=== PATIENT | male | born 1975 | race Caucasian/White ===

== ENCOUNTER 2016-10-26 17:50 | Emergency (ER) | payer SELFPAY ==
[~2016-10-26] VITALS: Ht 154.9 cm; Wt 60.0 kg
[2016-10-26 17:52] VITALS: BP 140/106; PULSE 96; RESP 20; TEMP 97.8; O2SAT 99
== END 2016-10-26 19:45 | disposition left against medical advice (07) ==
LOC: NED 17:50
DX: R68.89 Other general symptoms and signs (principal)
CPT/HCPCS: 99281

== ENCOUNTER 2017-08-21 17:49 | Inpatient (IN) | payer SELFPAY ==
[~2017-08-21] VITALS: Ht 154.9 cm; Wt 59.1 kg
[2017-08-21 20:45] VITALS: BP 125/90; PULSE 73; RESP 18; TEMP 97.8; O2SAT 100
[2017-08-21] MEDS ORDERED: traZODone HCL 100 MG TAB PO ONE (22:30)
[2017-08-22 05:58] VITALS: BP 102/63; PULSE 66; RESP 16; TEMP 97.8; O2SAT 66
[2017-08-22 07:44] LABS: BICARBONATE 29.8 MEQ/L (21.0-32.0); BLOOD UREA NITROGEN 11 MG/DL (7-18); CALCIUM 8.3 MG/DL (8.5-10.1); CHLORIDE 104 MEQ/L (98-107); CREATININE 0.94 MG/DL (0.60-1.30); GLOMERULAR FILTRATION RATE 89 ML/MIN (>89); GLUCOSE,RANDOM 93 MG/DL (74-106); SODIUM (NA) 139 MEQ/L (136-145)
[2017-08-22 07:45] LABS: CHOLESTEROL 163 MG/DL (120-200)
[2017-08-22 07:49] LABS: CHOLESTEROL/ HDL RATIO 3.14 RATIO; HDL CHOLESTEROL 51.9 MG/DL (40.0-60.0); LDL CHOLESTEROL 64 MG/DL (0-99); TRIGLYCERIDES 236 MG/DL (42-150)
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
[2017-08-22] MEDS ORDERED: traZODone HCL 50 MG TAB PO PRN (11:30)
[2017-08-22] MEDS ORDERED: ACETAMINOPHEN 325 MG TAB PO PRN (12:15)
[2017-08-22] MEDS ORDERED: NICOTINE 21 MG/24 HR PATCH T-DERMAL PRN (12:15)
[2017-08-22] MEDS ORDERED: MAGNESIUM HYDROXIDE SUSP 30 ML CUP PO PRN (12:15)
[2017-08-22] MEDS ORDERED: ALUMINUM/MAGNESIUM/SIMETH 30 ML CUP PO PRN (12:15)
[2017-08-22] MEDS ORDERED: REMOVE OLD PATCH T-DERMAL PRN (12:30)
[2017-08-22 16:54] LABS: HEMOGLOBIN A1C 4.6 % (4.3-6.0)
[2017-08-22 18:08] VITALS: BP 114/80; PULSE 63; RESP 17; TEMP 97.6; O2SAT 100
[2017-08-22] MEDS: LORazepam 0.5 MG TAB PO PRN (20:27)
[2017-08-23] MEDS: LORazepam 0.5 MG TAB PO PRN ×2 (05:37→11:30)
[2017-08-23 05:53] VITALS: BP 104/60; PULSE 59; RESP 20; TEMP 97.9; O2SAT 95
--- NOTE | 2017-08-23 11:40 | HHI.PYPN ---
Subjective Chief Complaint: "I think I just had a meltdown." Remarks Reviewed electronic medical record discussed case with staff. Follow-up performed in the hallway also the patient's room with nurse present. Patient is alert and oriented 4. His speech is clear, organized, and logical. Corroborating information received from the hospital in [place] states that patient was discharged to [facility] for psychiatric inpatient admission and treatment. However, patient maintains that he has had no further incidents since being discharged from [place]. Patient's counselor, Santo , is endeavoring to contact the patient's sister per his request for further corroborating information. Patient requested to have his trazodone increased back to 100 mg as he states he did not sleep last night. I have complied with this request. Will await to hear from counselor for further corroborating information. Mental Status Examination Appearance: Appropriate Consciousness: Alert Orientation: x4 Motor Activity: Normal gait Speech: Unremarkable Language: Adequate Fund of Knowledge: Adequate Attention and Concentration: Adequate Memory: Unremarkable Mood: Appropriate Affect: Appropriate Thought Process & Associations: Intact, Logical, Linear Thought Content: Appropriate Hallucination Type: None Delusion Type: None Suicidal Ideation: No Suicidal Plan: No Suicidal Intention: No Homicidal Ideation: No Homicidal Plan: No Homicidal Intention: No Insight: Adequate Judgment: Adequate Results Vitals/IOs Vital Signs Date Time Temp Pulse Resp B/P (MAP) Pulse Ox O2 Delivery O2 Flow Rate FiO2 08/23/17 05:53 97.9 59 20 104/60 (75) 95 Assessment & Plan Problem List: (1) Adjustment disorder with mixed disturbance of emotions and conduct ICD Codes: F43.25 - Adjustment disorder with mixed disturbance of emotions and conduct Assessment & Plan Estimated LOS: Patient appears to be stable. Discharge planning is in progress as well as an attempt to obtain collateral information. Days Justification for Cont. Inpt. Moving this patient to a lower level of care might result in a decompensation. Request HC Surrog/Guard Advoc?: No Mikayla Kebede Aug 23, 2017 11:40
[2017-08-23] MEDS ORDERED: traZODone HCL 100 MG TAB PO PRN (11:45)
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
[2017-08-23] MEDS ORDERED: TRAZ50TA12 PO (14:26)
[2017-08-23] MEDS ORDERED: HALO5TAB PO ×2 (14:31→14:37)
== END 2017-08-23 16:59 | disposition home or self-care (01) | DRG 882 ==
LOC: H270 20:45 → H260 08-22 15:22
PROVIDERS: ADMIT Psychiatry & Neurology Psychiatry; ATTEND Psychiatry & Neurology Psychiatry
DX: F43.25 Adjustment disorder with mixed disturbance of emotions and conduct (principal); Z81.8 Family history of other mental and behavioral disorders; Z62.819 Personal history of unspecified abuse in childhood
CPT/HCPCS: 80048; 80061; 83036

== ENCOUNTER 2017-09-01 01:50 | Emergency (ER) | payer SELFPAY ==
[~2017-09-01] VITALS: Ht 154.9 cm; Wt 60.0 kg
[~2017-09-01 01:50] MED LIST: HALO5TAB PO; TRAZ50TA12 PO
[2017-09-01 01:53] VITALS: BP 144/101; PULSE 112; RESP 22; TEMP 98.4; O2SAT 98
[2017-09-01] MEDS ORDERED: SERT25TA83 PO (02:13)
[2017-09-01] MEDS ORDERED: HYDR1CAP30 PO (02:13)
[2017-09-01] MEDS ORDERED: TEST200I12 IM (02:13)
[2017-09-01] MEDS ORDERED: QUET1TAB8 PO (02:13)
[2017-09-01] MEDS ORDERED: TRAZ100T10 PO (02:22)
--- NOTE | 2017-09-01 03:00 | PD ---
HPI Chief Complaint: Psychiatric Symptoms Time Seen by Provider: 02:42 Travel History International Travel<30 days: No Contact w/Intl Traveler<30days: No Traveled to known affect area: No History of Present Illness HPI 42-year-old white male presents emergency department on a voluntary basis accompanied by his sister and her significant other for psychological evaluation. The patient allegedly was just seen in the hospital here and discharged 2 days ago and was discharged with the diagnosis of schizophrenia. He was started on new medications which she has taken today. The sister states that the patient appeared to be confused and hallucinating. He had reported seeing a snake with a big head at the house, his ex- in the house as well as cartoon characters on his shirt. He also also voiced suicidal thoughts. He does not have a current plan. He denies any homicidal ideation. He denies any active medical complaints. Denies fever chills. No chest pain or shortness of breath. No nausea vomiting. No abdominal pain or urinary symptoms. PFSH Past Medical History Narrative Medical Schizophrenia, low T Psychiatric: Yes Schizophrenia: Yes Past Surgical History Narrative Surgical Cholecystectomy Cholecystectomy: Yes Other Surgery: Yes Social History Alcohol Use: Yes Tobacco Use: Yes Substance Use: No Allergies-Medications (Allergen,Severity, Reaction): Coded Allergies: No Known Allergies (Verified Allergy, Unknown, 08/21/17) Reported Meds & Prescriptions Reported Meds & Active Scripts Active Haloperidol 5 Mg Tab 5 Mg PO DAILY 30 Days Reported Trazodone (Trazodone HCl) 100 Mg Tablet 100 Mg PO HS Testosterone Cypionate Inj (Testosterone Cypionate) 200 Mg/Ml Inj 200 Mg IM [id number] Quetiapine (Quetiapine Fumarate) 100 Mg Tab 100 Mg PO DAILY Sertraline (Sertraline HCl) 25 Mg Tab 25 Mg PO DAILY Hydroxyzine Pamoate 25 Mg Cap 25 Mg PO BID PRN Review of Systems General / Constitutional: No: Fever Eyes: No: Visual changes HENT: No: Headaches Cardiovascular: No: Chest Pain or Discomfort Respiratory: No: Shortness of Breath Gastrointestinal: No: Abdominal Pain Genitourinary: No: Dysuria Musculoskeletal: No: Pain Skin: No Rash Neurologic: No: Weakness Psychiatric: Positive: Anxiety, Suicidal Ideations, Disorder of Thought, Mood Disorder, No: Depression, Substance Abuse, Homicidal Ideation Endocrine: No: Polydipsia Hematologic/Lymphatic: No: Easy Bruising Physical Exam Narrative GENERAL: Well-nourished, well-developed patient. SKIN: Warm and dry. HEAD: Normocephalic and atraumatic. EYES: No scleral icterus. No injection or drainage. ENT: No nasal drainage noted. Mucous membranes pink. Airway patent. NECK: Supple, trachea midline. Moves head freely without obvious discomfort. CARDIOVASCULAR: Regular rate and rhythm without murmurs, gallops, or rubs. RESPIRATORY: Breath sounds equal bilaterally. No accessory muscle use. GASTROINTESTINAL: Abdomen soft, non-tender, nondistended. EXTREMITIES: No cyanosis or edema. BACK: Nontender without obvious deformity. No CVA tenderness. NEURO: Patient is alert and oriented. no sensorimotor deficits. Nonfocal. Normal speech. PSYCH: Patient does appear to be disorganized. Patient does admit to visual hallucinations. Data Data Last Documented VS Vital Signs Date Time Temp Pulse Resp B/P (MAP) Pulse Ox O2 Delivery O2 Flow Rate FiO2 09/01/17 01:53 98.4 112 22 144/101 (115) 98 Orders Orders Complete Blood Count With Diff (09/01/17 02:50) Comprehensive Metabolic Panel (09/01/17 02:50) Thyroid Stimulating Hormone (09/01/17 02:50) Psych Screen (09/01/17 02:50) Drug Screen, Random Urine (09/01/17 02:50) Alcohol (Ethanol) (09/01/17 02:50) Salicylates (Aspirin) (09/01/17 02:50) Tylenol (Acetaminophen) (09/01/17 02:50) Trazodone (Desyrel) (09/01/17 04:15) Complete Blood Count With Diff (09/01/17 06:32) Labs Laboratory Tests Test 09/01/17 03:20 09/01/17 06:45 White Blood Count 17.0 TH/MM3 Red Blood Count 5.19 MIL/MM3 Hemoglobin 16.6 GM/DL Hematocrit 47.5 % Mean Corpuscular Volume 91.5 FL Mean Corpuscular Hemoglobin 32.0 PG Mean Corpuscular Hemoglobin Concent 35.0 % Red Cell Distribution Width 13.3 % Platelet Count 264 TH/MM3 Mean Platelet Volume 9.6 FL Neutrophils (%) (Auto) 90.2 % Lymphocytes (%) (Auto) 5.8 % Monocytes (%) (Auto) 3.6 % Eosinophils (%) (Auto) 0.2 % Basophils (%) (Auto) 0.2 % Neutrophils # (Auto) 15.3 TH/MM3 Lymphocytes # (Auto) 1.0 TH/MM3 Monocytes # (Auto) 0.6 TH/MM3 Eosinophils # (Auto) 0.0 TH/MM3 Basophils # (Auto) 0.0 TH/MM3 CBC Comment DIFF FINAL Differential Comment Blood Urea Nitrogen 8 MG/DL Creatinine 1.18 MG/DL Random Glucose 109 MG/DL Total Protein 8.1 GM/DL Albumin 4.8 GM/DL Calcium Level 8.9 MG/DL Alkaline Phosphatase 111 U/L Aspartate Amino Transf (AST/SGOT) 56 U/L Alanine Aminotransferase (ALT/SGPT) 98 U/L Total Bilirubin 0.3 MG/DL Sodium Level 139 MEQ/L Potassium Level 4.2 MEQ/L Chloride Level 103 MEQ/L Carbon Dioxide Level 24.3 MEQ/L Anion Gap 12 MEQ/L Estimat Glomerular Filtration Rate 68 ML/MIN Thyroid Stimulating Hormone 3rd Gen 1.080 uIU/ML Salicylates Level 2.5 MG/DL Acetaminophen Level LESS THAN 2.0 MCG/ML Ethyl Alcohol Level LESS THAN 3 MG/DL MDM Medical Decision Making Medical Screen Exam Complete: Yes Emergency Medical Condition: Yes Medical Record Reviewed: Yes Differential Diagnosis MDM: High Differential diagnoses: Schizophrenia, schizoaffective disorder, bipolar, anxiety, depression, adjustment reaction, mood disorder NOS, ODD, depressive disorder NOS, psychosis NOS, substance induced mood disorder, infection, electrolyte abnormality, malingering. Narrative Course Mental health screening discussed with the patient. Psychiatric screen ordered. The patient's white count is elevated. We will repeat his CBC to determine if it is demargination or if it is still elevated. The oncoming nurse practitioner Racquel Newman will determine if the patient is considered medically stable after she reviews laboratory test. This is medical clearance for psychiatric admission Diagnosis Primary Impression: Medical clearance for psychiatric admission Condition: Sean Ramachandran Sep 01, 2017 03:00
[2017-09-01 04:02] LABS: AUTOMATED NEUTROPHIL # 15.3 TH/MM3 (1.8-7.7); BASOPHIL % 0.2 % (0.0-2.0); EOSINOPHIL % 0.2 % (0.0-4.0); HEMATOCRIT 47.5 % (39.0-51.0); HEMOGLOBIN 16.6 GM/DL (13.0-17.0); LYMPH % 5.8 % (9.0-44.0); MEAN CELL VOLUME 91.5 FL (80.0-100.0); MEAN PLATELET VOLUME 9.6 FL (7.0-11.0); MONO % 3.6 % (0.0-8.0); MONOCYTE # 0.6 TH/MM3 (0-0.9); NEUT % 90.2 % (16.0-70.0); PLATELET COUNT 264 TH/MM3 (150-450); RED BLOOD COUNT 5.19 MIL/MM3 (4.50-5.90); RED CELL DISTRIBUTION WIDTH 13.3 % (11.6-17.2)
[2017-09-01] MEDS ORDERED: traZODone HCL 50 MG TAB PO ONE (04:15)
[2017-09-01 04:23] LABS: ALKALINE PHOSPHATASE 111 U/L (45-117); ALT (GPT) 98 U/L (12-78); TOTAL BILIRUBIN ADULT 0.3 MG/DL (0.2-1.0); TOTAL PROTEIN 8.1 GM/DL (6.4-8.2)
[2017-09-01 04:28] LABS: ACETAMINOPHEN LESS THAN 2.0 MCG/ML (10.0-30.0); ALBUMIN 4.8 GM/DL (3.4-5.0); AST (GOT) 56 U/L (15-37); BICARBONATE 24.3 MEQ/L (21.0-32.0); BLOOD UREA NITROGEN 8 MG/DL (7-18); CALCIUM 8.9 MG/DL (8.5-10.1); CHLORIDE 103 MEQ/L (98-107); CREATININE 1.18 MG/DL (0.60-1.30); GLOMERULAR FILTRATION RATE 68 ML/MIN (>89); GLUCOSE,RANDOM 109 MG/DL (74-106); SODIUM (NA) 139 MEQ/L (136-145)
[2017-09-01 06:54] LABS: AUTOMATED NEUTROPHIL # 11.7 TH/MM3 (1.8-7.7); BASOPHIL % 0.3 % (0.0-2.0); EOSINOPHIL # 0.1 TH/MM3 (0-0.4); EOSINOPHIL % 0.4 % (0.0-4.0); HEMATOCRIT 47.7 % (39.0-51.0); HEMOGLOBIN 16.2 GM/DL (13.0-17.0); LYMPH % 9.7 % (9.0-44.0); LYMPHOCYTE # 1.3 TH/MM3 (1.0-4.8); MEAN CELL VOLUME 91.5 FL (80.0-100.0); MEAN CORPUSCULAR HEMOGLOBIN 31.1 PG (27.0-34.0); MEAN PLATELET VOLUME 9.3 FL (7.0-11.0); MONO % 2.9 % (0.0-8.0); MONOCYTE # 0.4 TH/MM3 (0-0.9); NEUT % 86.7 % (16.0-70.0); PLATELET COUNT 284 TH/MM3 (150-450); RED BLOOD COUNT 5.21 MIL/MM3 (4.50-5.90); RED CELL DISTRIBUTION WIDTH 13.5 % (11.6-17.2); WHITE BLOOD COUNT 13.5 TH/MM3 (4.0-11.0)
--- NOTE | 2017-09-01 07:17 | PD ---
Physical Exam Date Seen by Provider: Sep 01, 2017 Time Seen by Provider: 07:16 Narrative For full history and physical examination please see previous providers note. I assumed care of this patient change his shift. At that time a repeat CBC was pending. Initial CBC showed an elevated white count. Patient has no signs of infection. Data Data Last Documented VS Vital Signs Date Time Temp Pulse Resp B/P (MAP) Pulse Ox O2 Delivery O2 Flow Rate FiO2 09/01/17 01:53 98.4 112 22 144/101 (115) 98 Orders Orders Complete Blood Count With Diff (09/01/17 02:50) Comprehensive Metabolic Panel (09/01/17 02:50) Thyroid Stimulating Hormone (09/01/17 02:50) Psych Screen (09/01/17 02:50) Drug Screen, Random Urine (09/01/17 02:50) Alcohol (Ethanol) (09/01/17 02:50) Salicylates (Aspirin) (09/01/17 02:50) Tylenol (Acetaminophen) (09/01/17 02:50) Trazodone (Desyrel) (09/01/17 04:15) Complete Blood Count With Diff (09/01/17 06:32) Ua Includes Microscopic (09/01/17 06:51) Labs Laboratory Tests Test 09/01/17 03:20 09/01/17 06:45 White Blood Count 17.0 TH/MM3 13.5 TH/MM3 Red Blood Count 5.19 MIL/MM3 5.21 MIL/MM3 Hemoglobin 16.6 GM/DL 16.2 GM/DL Hematocrit 47.5 % 47.7 % Mean Corpuscular Volume 91.5 FL 91.5 FL Mean Corpuscular Hemoglobin 32.0 PG 31.1 PG Mean Corpuscular Hemoglobin Concent 35.0 % 34.0 % Red Cell Distribution Width 13.3 % 13.5 % Platelet Count 264 TH/MM3 284 TH/MM3 Mean Platelet Volume 9.6 FL 9.3 FL Neutrophils (%) (Auto) 90.2 % 86.7 % Lymphocytes (%) (Auto) 5.8 % 9.7 % Monocytes (%) (Auto) 3.6 % 2.9 % Eosinophils (%) (Auto) 0.2 % 0.4 % Basophils (%) (Auto) 0.2 % 0.3 % Neutrophils # (Auto) 15.3 TH/MM3 11.7 TH/MM3 Lymphocytes # (Auto) 1.0 TH/MM3 1.3 TH/MM3 Monocytes # (Auto) 0.6 TH/MM3 0.4 TH/MM3 Eosinophils # (Auto) 0.0 TH/MM3 0.1 TH/MM3 Basophils # (Auto) 0.0 TH/MM3 0.0 TH/MM3 CBC Comment DIFF FINAL DIFF FINAL Differential Comment Blood Urea Nitrogen 8 MG/DL Creatinine 1.18 MG/DL Random Glucose 109 MG/DL Total Protein 8.1 GM/DL Albumin 4.8 GM/DL Calcium Level 8.9 MG/DL Alkaline Phosphatase 111 U/L Aspartate Amino Transf (AST/SGOT) 56 U/L Alanine Aminotransferase (ALT/SGPT) 98 U/L Total Bilirubin 0.3 MG/DL Sodium Level 139 MEQ/L Potassium Level 4.2 MEQ/L Chloride Level 103 MEQ/L Carbon Dioxide Level 24.3 MEQ/L Anion Gap 12 MEQ/L Estimat Glomerular Filtration Rate 68 ML/MIN Thyroid Stimulating Hormone 3rd Gen 1.080 uIU/ML Salicylates Level 2.5 MG/DL Acetaminophen Level LESS THAN 2.0 MCG/ML Ethyl Alcohol Level LESS THAN 3 MG/DL [facility] Medical Record Reviewed: Yes Supervised Visit with CHILO: No Interpretation(s) Laboratory Tests Test 09/01/17 03:20 09/01/17 06:45 White Blood Count 17.0 TH/MM3 13.5 TH/MM3 Red Blood Count 5.19 MIL/MM3 5.21 MIL/MM3 Hemoglobin 16.6 GM/DL 16.2 GM/DL Hematocrit 47.5 % 47.7 % Mean Corpuscular Volume 91.5 FL 91.5 FL Mean Corpuscular Hemoglobin 32.0 PG 31.1 PG Mean Corpuscular Hemoglobin Concent 35.0 % 34.0 % Red Cell Distribution Width 13.3 % 13.5 % Platelet Count 264 TH/MM3 284 TH/MM3 Mean Platelet Volume 9.6 FL 9.3 FL Neutrophils (%) (Auto) 90.2 % 86.7 % Lymphocytes (%) (Auto) 5.8 % 9.7 % Monocytes (%) (Auto) 3.6 % 2.9 % Eosinophils (%) (Auto) 0.2 % 0.4 % Basophils (%) (Auto) 0.2 % 0.3 % Neutrophils # (Auto) 15.3 TH/MM3 11.7 TH/MM3 Lymphocytes # (Auto) 1.0 TH/MM3 1.3 TH/MM3 Monocytes # (Auto) 0.6 TH/MM3 0.4 TH/MM3 Eosinophils # (Auto) 0.0 TH/MM3 0.1 TH/MM3 Basophils # (Auto) 0.0 TH/MM3 0.0 TH/MM3 CBC Comment DIFF FINAL DIFF FINAL Differential Comment Blood Urea Nitrogen 8 MG/DL Creatinine 1.18 MG/DL Random Glucose 109 MG/DL Total Protein 8.1 GM/DL Albumin 4.8 GM/DL Calcium Level 8.9 MG/DL Alkaline Phosphatase 111 U/L Aspartate Amino Transf (AST/SGOT) 56 U/L Alanine Aminotransferase (ALT/SGPT) 98 U/L Total Bilirubin 0.3 MG/DL Sodium Level 139 MEQ/L Potassium Level 4.2 MEQ/L Chloride Level 103 MEQ/L Carbon Dioxide Level 24.3 MEQ/L Anion Gap 12 MEQ/L Estimat Glomerular Filtration Rate 68 ML/MIN Thyroid Stimulating Hormone 3rd Gen 1.080 uIU/ML Salicylates Level 2.5 MG/DL Acetaminophen Level LESS THAN 2.0 MCG/ML Ethyl Alcohol Level LESS THAN 3 MG/DL Vital Signs Date Time Temp Pulse Resp B/P (MAP) Pulse Ox O2 Delivery O2 Flow Rate FiO2 09/01/17 01:53 98.4 112 22 144/101 (115) 98 Narrative Course Repeat CBC shows a downward trend in the white blood cell count to 13.5. Urine drug screen is pending. Patient is medically clear for psychiatric evaluation. Diagnosis Primary Impression: Medical clearance for psychiatric admission Condition: Stable Kate Silver [facility] Sep 01, 2017 07:17
[2017-09-01 07:20] VITALS: BP 178/118; PULSE 82; RESP 18; O2SAT 98
[2017-09-01] MEDS ORDERED: LISINOPRIL 20 MG TAB PO ONE (07:30)
[2017-09-01 08:27] VITALS: BP 167/117
[2017-09-01 09:19] VITALS: BP 141/100
[2017-09-01] MEDS ORDERED: LISI10TA3 PO (10:48)
[2017-09-01] MEDS ORDERED: VIST50CA PO (10:48)
--- NOTE | 2017-09-01 10:49 | PD ---
Physical Exam Date Seen by Provider: Sep 01, 2017 Time Seen by Provider: 10:42 Narrative For full H&P please see previous notes. Data Data Last Documented VS Vital Signs Date Time Temp Pulse Resp B/P (MAP) Pulse Ox O2 Delivery O2 Flow Rate FiO2 09/01/17 09:19 141/100 (114) 09/01/17 07:20 82 18 98 Room Air 09/01/17 01:53 98.4 Orders Orders Complete Blood Count With Diff (09/01/17 02:50) Comprehensive Metabolic Panel (09/01/17 02:50) Thyroid Stimulating Hormone (09/01/17 02:50) Psych Screen (09/01/17 02:50) Drug Screen, Random Urine (09/01/17 02:50) Alcohol (Ethanol) (09/01/17 02:50) Salicylates (Aspirin) (09/01/17 02:50) Tylenol (Acetaminophen) (09/01/17 02:50) Trazodone (Desyrel) (09/01/17 04:15) Complete Blood Count With Diff (09/01/17 06:32) Ua Includes Microscopic (09/01/17 06:51) Lisinopril (Prinivil) (09/01/17 07:30) Diet Regular Basic (09/01/17 Breakfast) Hydroxyzine Pamoate (Vistaril) (09/01/17 10:15) Ed Discharge Order (09/01/17 10:42) Labs Laboratory Tests Test 09/01/17 03:20 09/01/17 06:45 White Blood Count 17.0 TH/MM3 13.5 TH/MM3 Red Blood Count 5.19 MIL/MM3 5.21 MIL/MM3 Hemoglobin 16.6 GM/DL 16.2 GM/DL Hematocrit 47.5 % 47.7 % Mean Corpuscular Volume 91.5 FL 91.5 FL Mean Corpuscular Hemoglobin 32.0 PG 31.1 PG Mean Corpuscular Hemoglobin Concent 35.0 % 34.0 % Red Cell Distribution Width 13.3 % 13.5 % Platelet Count 264 TH/MM3 284 TH/MM3 Mean Platelet Volume 9.6 FL 9.3 FL Neutrophils (%) (Auto) 90.2 % 86.7 % Lymphocytes (%) (Auto) 5.8 % 9.7 % Monocytes (%) (Auto) 3.6 % 2.9 % Eosinophils (%) (Auto) 0.2 % 0.4 % Basophils (%) (Auto) 0.2 % 0.3 % Neutrophils # (Auto) 15.3 TH/MM3 11.7 TH/MM3 Lymphocytes # (Auto) 1.0 TH/MM3 1.3 TH/MM3 Monocytes # (Auto) 0.6 TH/MM3 0.4 TH/MM3 Eosinophils # (Auto) 0.0 TH/MM3 0.1 TH/MM3 Basophils # (Auto) 0.0 TH/MM3 0.0 TH/MM3 CBC Comment DIFF FINAL DIFF FINAL Differential Comment Blood Urea Nitrogen 8 MG/DL Creatinine 1.18 MG/DL Random Glucose 109 MG/DL Total Protein 8.1 GM/DL Albumin 4.8 GM/DL Calcium Level 8.9 MG/DL Alkaline Phosphatase 111 U/L Aspartate Amino Transf (AST/SGOT) 56 U/L Alanine Aminotransferase (ALT/SGPT) 98 U/L Total Bilirubin 0.3 MG/DL Sodium Level 139 MEQ/L Potassium Level 4.2 MEQ/L Chloride Level 103 MEQ/L Carbon Dioxide Level 24.3 MEQ/L Anion Gap 12 MEQ/L Estimat Glomerular Filtration Rate 68 ML/MIN Thyroid Stimulating Hormone 3rd Gen 1.080 uIU/ML Salicylates Level 2.5 MG/DL Acetaminophen Level LESS THAN 2.0 MCG/ML Ethyl Alcohol Level LESS THAN 3 MG/DL Urine Opiates Screen NEG Urine Barbiturates Screen NEG Urine Amphetamines Screen NEG Urine Benzodiazepines Screen NEG Urine Cocaine Screen NEG Urine Cannabinoids Screen NEG [facility] Medical Record Reviewed: Yes Supervised Visit with CHILO: No Interpretation(s) Laboratory Tests Test 09/01/17 03:20 09/01/17 06:45 White Blood Count 17.0 TH/MM3 13.5 TH/MM3 Red Blood Count 5.19 MIL/MM3 5.21 MIL/MM3 Hemoglobin 16.6 GM/DL 16.2 GM/DL Hematocrit 47.5 % 47.7 % Mean Corpuscular Volume 91.5 FL 91.5 FL Mean Corpuscular Hemoglobin 32.0 PG 31.1 PG Mean Corpuscular Hemoglobin Concent 35.0 % 34.0 % Red Cell Distribution Width 13.3 % 13.5 % Platelet Count 264 TH/MM3 284 TH/MM3 Mean Platelet Volume 9.6 FL 9.3 FL Neutrophils (%) (Auto) 90.2 % 86.7 % Lymphocytes (%) (Auto) 5.8 % 9.7 % Monocytes (%) (Auto) 3.6 % 2.9 % Eosinophils (%) (Auto) 0.2 % 0.4 % Basophils (%) (Auto) 0.2 % 0.3 % Neutrophils # (Auto) 15.3 TH/MM3 11.7 TH/MM3 Lymphocytes # (Auto) 1.0 TH/MM3 1.3 TH/MM3 Monocytes # (Auto) 0.6 TH/MM3 0.4 TH/MM3 Eosinophils # (Auto) 0.0 TH/MM3 0.1 TH/MM3 Basophils # (Auto) 0.0 TH/MM3 0.0 TH/MM3 CBC Comment DIFF FINAL DIFF FINAL Differential Comment Blood Urea Nitrogen 8 MG/DL Creatinine 1.18 MG/DL Random Glucose 109 MG/DL Total Protein 8.1 GM/DL Albumin 4.8 GM/DL Calcium Level 8.9 MG/DL Alkaline Phosphatase 111 U/L Aspartate Amino Transf (AST/SGOT) 56 U/L Alanine Aminotransferase (ALT/SGPT) 98 U/L Total Bilirubin 0.3 MG/DL Sodium Level 139 MEQ/L Potassium Level 4.2 MEQ/L Chloride Level 103 MEQ/L Carbon Dioxide Level 24.3 MEQ/L Anion Gap 12 MEQ/L Estimat Glomerular Filtration Rate 68 ML/MIN Thyroid Stimulating Hormone 3rd Gen 1.080 uIU/ML Salicylates Level 2.5 MG/DL Acetaminophen Level LESS THAN 2.0 MCG/ML Ethyl Alcohol Level LESS THAN 3 MG/DL Urine Opiates Screen NEG Urine Barbiturates Screen NEG Urine Amphetamines Screen NEG Urine Benzodiazepines Screen NEG Urine Cocaine Screen NEG Urine Cannabinoids Screen NEG Vital Signs Date Time Temp Pulse Resp B/P (MAP) Pulse Ox O2 Delivery O2 Flow Rate FiO2 09/01/17 09:19 141/100 (114) 09/01/17 08:27 167/117 (134) 09/01/17 07:20 82 18 178/118 (138) 98 Room Air 09/01/17 01:53 98.4 112 22 144/101 (115) 98 Narrative Course Patient is a 42-year-old male that presented voluntarily to emergency department for psychiatric evaluation. Patient was seen and evaluated, medically cleared. Patient was then seen by psych screener. Patient had an appointment on September 24 at [facility], the appointment was able to be moved up and patient was advised that [facility] would see him whenever he could get there on a walk-in basis. Patient will be discharged home with those instructions. Patient's father will be accompanying patient. Patient was reevaluated, he has no suicidal ideations at this time. Patient will be discharged home with lisinopril and Vistaril, he is encouraged to follow-up with a primary doctor for ongoing evaluation and management of his hypertension. Patient is encouraged to return to emergency department for any new worsening symptoms. Patient stable for discharge. Diagnosis Primary Impression: Adjustment disorder with mixed disturbance of emotions and conduct Additional Impression: Hypertension Qualified Codes: I10 - Essential (primary) hypertension Referrals: Wendy NORA Montano Go to the [facility], they will see you when you get there. Patient Instructions: General Instructions Additional Instruction: Follow-up with [facility] as advised Return to emergency department for any new or worsening symptoms Take medications as prescribed Med/Other Pt SpecificInfo: Prescription(s) given Scripts Hydroxyzine Pamoate (Vistaril) 50 Mg Cap 50 MG PO TID Y for ANXIETY, #15 CAP 0 Refills Prov: Kate Silver 09/01/17 Lisinopril (Lisinopril) 10 Mg Tab 10 MG PO DAILY, #30 TAB 0 Refills Prov: Kate Silver 09/01/17 Disposition: 01 DISCHARGE HOME Condition: Stable Kate Silver Sep 01, 2017 10:49
[2017-09-01 10:52] VITALS: BP 130/90
== END 2017-09-01 10:56 | disposition home or self-care (01) ==
LOC: NEPD 01:50
DX: F43.25 Adjustment disorder with mixed disturbance of emotions and conduct (principal); I10 Essential (primary) hypertension; F20.9 Schizophrenia, unspecified; Z72.0 Tobacco use; Z79.899 Other long term (current) drug therapy
CPT/HCPCS: 80053; 80307; 84443; 85025; 99283